=== PATIENT | male | born 1960 | race Two or more races ===

== ENCOUNTER 2017-11-11 21:40 | Inpatient (IN) | payer MEDICARE, OTHER ==
[~2017-11-11] VITALS: Ht 172.7 cm; Wt 96.2 kg
--- NOTE | 2017-11-11 22:05 | NUR ---
PATIENT CAME VIA GURNEY FROM [facility].PATIENT CONFUSED .MAEX4.NO RESPIRATORY DISTRESS NOTED BREATHING EVEN UNLABORED.SITTER AT BEDSIDE .
[2017-11-11] MEDS ORDERED: ACET-2154 PO (22:33)
[2017-11-11] MEDS ORDERED: LEVE500T9 PO (22:33)
[2017-11-11] MEDS ORDERED: CLON0.1T PO (22:33)
[2017-11-11] MEDS ORDERED: MONT10TA22 PO (22:33)
[2017-11-11] MEDS ORDERED: HALO5TAB PO (22:33)
[2017-11-11] MEDS ORDERED: ASPI81TA31 PO (22:33)
[2017-11-11] MEDS ORDERED: LISI-607 PO (22:33)
[2017-11-11] MEDS ORDERED: DIVA500T54 PO (22:33)
[2017-11-11] MEDS ORDERED: GLUCOPHAGE (22:33)
[2017-11-11] MEDS ORDERED: LORA2TAB95 PO (22:33)
[2017-11-11] MEDS ORDERED: ENOX40DI SQ (22:33)
[2017-11-11] MEDS ORDERED: HYDR12.55 PO (22:33)
[2017-11-11] MEDS ORDERED: HYDR-3326 PO (22:33)
[2017-11-11] MEDS ORDERED: RISP1TAB27 PO (22:33)
[2017-11-11] MEDS ORDERED: LOVENOX SUBCUT (22:33)
[2017-11-11 22:58] LABS: BASOPHILS # (AUTO) 0.2 K/uL (0.0-8.0); BASOPHILS % (AUTO) 1.5 % (0.0-2.0); EOSINOPHILS # (AUTO) 0.2 K/uL (0.0-0.7); EOSINOPHILS % (AUTO) 1.8 % (0.0-7.0); HEMOGLOBIN 13.7 g/dL (12.5-16.3); LYMPHOCYTES # (AUTO) 3.6 K/uL (20.0-40.0); MEAN CORPUSCULAR HEMOGLOBIN 30.5 uug (23.8-33.4); MEAN CORPUSCULAR HGB CONC 34 g/dL (32.5-36.3); MEAN CORPUSCULAR VOLUME 88.9 fL (73.0-96.2); MONOCYTES # (AUTO) 0.9 K/uL (2.0-10.0); MONOCYTES % (AUTO) 7.4 % (0.0-11.0); NEUTROPHILS # (AUTO) 6.8 K/uL (1.8-8.9); NEUTROPHILS % (AUTO) 58.3 % (38.5-71.5); PLATELET COUNT (AUTO) 230 K/uL (152-348); WHITE BLOOD COUNT (AUTO) 11.6 K/uL (3.6-10.2)
[2017-11-11 23:09] LABS: CARBON DIOXIDE 32 mmol/L (21-32); CHLORIDE 99 mmol/L (98-107); CREATININE 0.9 mg/dL (0.6-1.3); GLUCOSE 170 mg/dL (74-106); UREA NITROGEN, BLOOD 21 mg/dL (7-18)
[2017-11-11 23:10] LABS: ETHANOL < 3 MG/DL (0-0)
[2017-11-11 23:14] LABS: ACETAMINOPHEN < 2.0 ug/mL (10-30); ALANINE AMINOTRANSFERASE 32 U/L (16-63); ALKALINE PHOSPHATASE 116 U/L (50-136); ASPARTATE AMINOTRANSFERASE 18 U/L (15-37); BILIRUBIN,DIRECT 0.1 mg/dL (0.0-0.2); BILIRUBIN,TOTAL 0.3 mg/dL (0.2-1.0); TOTAL PROTEIN, SERUM 7.8 g/dL (6.4-8.2)
--- NOTE | 2017-11-12 03:20 | NUR ---
marissa RN in charge called for the bed in psych unit as per unit charge nurse they have to arrange bed and will moved beds around to accomodate pt and they will call ER once bed is available .
--- NOTE | 2017-11-12 04:45 | NUR ---
GIVEN GIVEN TO TABITHA USING SBAR PATIENT GOING TO ROOM 26 UNDER ROSA .
--- NOTE | 2017-11-12 05:02 | NUR ---
UPDATED REPORT GIVEN BY MACIEL LU RN GOING TO BED 26.
--- NOTE | 2017-11-12 05:08 | NUR ---
PATIENT EASILY AROUSABLE NOD HEAD TO SIMPLE QUESTIONS ,EYES OPEN SPONTANEOUSLY ..MOVED FROM SIDE TO SIDE .V/S WNL NO SOB .
[2017-11-12] MEDS ORDERED: MAG HYDROX/AL HYDROX/SIMETH 30 ML LIQUID UDC PO PRN (05:45)
[2017-11-12] MEDS ORDERED: MAGNESIUM HYDROXIDE 30 ML LIQUID UDC PO PRN (05:45)
--- NOTE | 2017-11-12 07:30 | NUR ---
Received pt laying in bed. 1:1 sitter in the room for safety. No immediate s/s of pain, distress, discomfort or SOB. Bed at lowest position safety and call light with in reach for assistance
[2017-11-12] MEDS ORDERED: DEXTROSE 50% 50 ML DISP.SYRIN IV PRN (07:45)
[2017-11-12 08:30] VITALS: BP 152/80
--- NOTE | 2017-11-12 08:40 | NUR ---
Pt is requesting to go outside and smoke. Pt start crying when he was informed he can not go outside. is aware, Nicotine patch 21mg ordered by doctor's orders
[2017-11-12] MEDS: ACETAMINOPHEN 325 MG TABLET PO PRN (08:55)
[2017-11-12] MEDS: LORAZEPAM 1 MG TABLET PO PRN ×2 (08:55→15:43)
[2017-11-12] MEDS: NICOTINE 21 MG/24HR PATCH TD SCH (08:55)
[2017-11-12] MEDS ORDERED: CLONIDINE HCL 0.1 MG TABLET PO SCH (10:15)
[2017-11-12] MEDS ORDERED: ENOXAPARIN SODIUM 40 MG/0.4 ML DISP.SYRIN SQ SCH ×2 (10:15→11:30)
[2017-11-12] MEDS ORDERED: ACETAMINOPHEN 325 MG TABLET PO PRN (10:15)
[2017-11-12] MEDS: LISINOPRIL 5 MG TABLET PO SCH (10:58)
[2017-11-12] MEDS ORDERED: DIVALPROEX ER 500 MG TAB.SR.24H PO SCH (11:20)
[2017-11-12] MEDS: BLOOD SUGAR DIAGNOSTIC 1 EACH STRIP VI SCH ×3 (11:57→20:43)
[2017-11-12] MEDS: LEVETIRACETAM 500 MG TABLET PO SCH (11:57)
[2017-11-12] MEDS: ENOXAPARIN SODIUM 30 MG/0.3 ML DISP.SYRIN SUBCUT SCH ×2 (11:58→20:03)
[2017-11-12] MEDS: INSULIN REGULAR, HUMAN 300 UNIT/3 ML VIAL SQ PRN ×3 (12:00→20:45)
[2017-11-12] MEDS: risperiDONE 1 MG TABLET PO SCH ×2 (13:13→20:04)
--- NOTE | 2017-11-12 13:40 | NUR ---
Pt has been medically cleared and will be transferring to MHU. Report given to MHU nurse.
--- NOTE | 2017-11-12 13:45 | NUR ---
Pt has been transferred to room 141B MHU via wheelchair, personally belongings with him and medical chart given to MHU nurse. Pt is in stable condition and aware of his transfer
[2017-11-12] MEDS ORDERED: CLONIDINE HCL 0.1 MG TABLET PO PRN (16:15)
[2017-11-12 16:19] VITALS: BP 108/59
[2017-11-12] MEDS: MONTELUKAST SODIUM 10 MG TABLET PO SCH (17:14)
[2017-11-12 19:49] VITALS: BP 110/48
[2017-11-12] MEDS: HYDROCODONE/APAP 5-325MG TABLET PO PRN (20:04)
--- NOTE | 2017-11-12 20:08 | NUR ---
GPS: PATIENT C/O BACK PAIN. NORCO 1 TAB PO GIVEN PER PATIENT REQUESTED.
[2017-11-12] MEDS: TEMAZEPAM 7.5 MG CAPSULE PO PRN (22:36)
--- NOTE | 2017-11-12 22:52 | NUR ---
GPS: PATIENT C/O INSOMNIA. RESTORIL 7.5 MG PO GIVEN.
--- NOTE | 2017-11-12 23:52 | NUR ---
GPS: PATIENT SLEEPING EYE CLOSE. PRN EFFECTIVE FOR SLEEP.
[2017-11-13] MEDS: BLOOD SUGAR DIAGNOSTIC 1 EACH STRIP VI SCH ×4 (06:24→20:47)
--- NOTE | 2017-11-13 06:36 | NUR ---
GPS: REMAIN CALM AND COOPERATIVE. SLEPT 10 HRS THROUGH THE NIGHT. CONTINUE PLAN OF CARE.C/O HEADACHE TYLENOL 650 MG PO GIVEN. CONTINUE PLAN OF CARE.
[2017-11-13] MEDS: ACETAMINOPHEN 325 MG TABLET PO PRN (06:44)
[2017-11-13] MEDS: INSULIN REGULAR, HUMAN 300 UNIT/3 ML VIAL SQ PRN ×4 (07:21→20:50)
[2017-11-13 07:57] VITALS: BP 108/60
[2017-11-13] MEDS: LEVETIRACETAM 500 MG TABLET PO SCH (08:07)
[2017-11-13] MEDS: DIVALPROEX ER 500 MG TAB.SR.24H PO SCH (08:07)
[2017-11-13] MEDS: risperiDONE 1 MG TABLET PO SCH ×2 (08:07→20:45)
[2017-11-13] MEDS: ASPIRIN 81 MG TAB.CHEW PO SCH (08:07)
[2017-11-13] MEDS: NICOTINE 21 MG/24HR PATCH TD SCH (08:07)
[2017-11-13] MEDS: LISINOPRIL 5 MG TABLET PO SCH (08:07)
[2017-11-13] MEDS: ENOXAPARIN SODIUM 30 MG/0.3 ML DISP.SYRIN SUBCUT SCH ×2 (08:08→20:51)
[2017-11-13] MEDS: LORAZEPAM 1 MG TABLET PO PRN ×3 (10:04→22:09)
[2017-11-13 16:43] VITALS: BP 93/52
[2017-11-13] MEDS: MONTELUKAST SODIUM 10 MG TABLET PO SCH (17:04)
--- NOTE | 2017-11-13 20:00 | NUR ---
RECEIVED PATIENT IN HIS ROOM, HE IS NOTED A/O X 2, HE IS ABLE TO AMBULATE WITH STEADY GAIT AND ABLE TO MAKE HIS NEEDS KNOWN. HE IS NOTED HARD OF HEARING. UPON INTERVIEW, WHEN ASKED "WHERE ARE YOU?" HE STATED IN A SARCASTIC WAY, "AT THE PARK." WHEN ASKED, "WHY ARE YOU HERE? HE STATED, "BECAUSE I AM CRAZY." PATIENT DENIES SI/AH/VH AT THIS TIME. SAFETY EMPHASIS. WILL CONTINUE TO MONITOR CLOSELY.
--- NOTE | 2017-11-13 22:10 | NUR ---
PATIENT NOTED RESTLESS, TALKING TO HIMSELF, RESPONDING TO INTERNAL STIMULI. HOWEVER, HE DENIED AH/VH. REDIRECTION GIVEN. ATIVAN 1MG PO PRN WAS GIVEN FOR AGITATION PER NURSE ASSESSMENT AND PATIENT REQUEST. WILL CONTINUE TO MONITOR CLOSELY.
[2017-11-14] MEDS: TEMAZEPAM 7.5 MG CAPSULE PO PRN ×2 (00:58→23:29)
--- NOTE | 2017-11-14 00:58 | NUR ---
PT APPROACHED THE NURSING STATION STATING THAT HE WAS UNABLE TO FALL ASLEEP AND HE NEEDED MORE MEDICATION. RESTORIL 7.5 MG PO PRN FOR INSOMNIA WAS GIVEN PER NURSE ASSESSMENT AND PATIENT'S REQUEST. WILL CONTINUE TO MONITOR.
--- NOTE | 2017-11-14 01:59 | NUR ---
PT NOTED SLEEPING COMFORTABLE IN HIS BED. WILL CONTINUE TO MONITOR CLOSELY.
[2017-11-14] MEDS: BLOOD SUGAR DIAGNOSTIC 1 EACH STRIP VI SCH ×4 (06:32→21:12)
[2017-11-14] MEDS: ACETAMINOPHEN 325 MG TABLET PO PRN ×2 (06:45→19:42)
--- NOTE | 2017-11-14 06:46 | NUR ---
Pt slept for approx 5.30hrs through the night. he stated that he is having a headaches 8/10 in the intensity scale and requested tylenol. Tylenol 650mg po prn was given for pain. will continue to monitor
[2017-11-14 07:30] VITALS: BP 120/57
[2017-11-14] MEDS: LORAZEPAM 1 MG TABLET PO PRN ×4 (07:39→21:46)
[2017-11-14] MEDS: INSULIN REGULAR, HUMAN 300 UNIT/3 ML VIAL SQ PRN ×4 (07:40→21:15)
[2017-11-14] MEDS: DIVALPROEX ER 500 MG TAB.SR.24H PO SCH (08:11)
[2017-11-14] MEDS: LISINOPRIL 5 MG TABLET PO SCH (08:12)
[2017-11-14] MEDS: risperiDONE 1 MG TABLET PO SCH ×2 (08:12→20:10)
[2017-11-14] MEDS: LEVETIRACETAM 500 MG TABLET PO SCH (08:12)
[2017-11-14] MEDS: ASPIRIN 81 MG TAB.CHEW PO SCH (08:12)
[2017-11-14] MEDS: NICOTINE 21 MG/24HR PATCH TD SCH (08:28)
[2017-11-14] MEDS: ENOXAPARIN SODIUM 30 MG/0.3 ML DISP.SYRIN SUBCUT SCH ×2 (08:36→21:16)
[2017-11-14 15:49] VITALS: BP 129/78
[2017-11-14] MEDS: MONTELUKAST SODIUM 10 MG TABLET PO SCH (17:10)
--- NOTE | 2017-11-14 20:00 | NUR ---
RECEIVED PATIENT IN HIS ROOM, HE IS NOTED A/O X 2, HE IS ABLE TO AMBULATE WITH STEADY GAIT AND ABLE TO MAKE HIS NEEDS KNOWN. HE IS NOTED PREOCCUPIED, LOW MOOD, NEEDY AND WITHDRAWN; HOWEVER, HE DENIES SI/HI/AH/VH. FAIR INSIGHT TO THE REASON FOR HIS ADMISSION TO MHU. BS 170. PATIENT IS COMPLIANT WITH MEDICATION REGIMENT AT THIS TIME. SAFETY EMPHASIS. WILL CONTINUE TO MONITOR.
[2017-11-14 20:11] VITALS: BP 119/75
--- NOTE | 2017-11-14 21:50 | NUR ---
PATIENT STATED AT HE WAS FEELING ANXIOUS. HE WAS ALSO NOTED YELLING. HOWEVER, HE IS EASILY REDIRECTABLE. ATIVAN 1MG PO PRN WAS GIVEN FOR ANXIETY. WILL CONTINUE TO MONITOR CLOSELY.
--- NOTE | 2017-11-14 23:55 | NUR ---
PT APPROACHED THE NURSING STATION, HE STATED THAT HE IS HAVING A HARD TIME FALLING ASLEEP. RESTORIL 7.5MG PO PRN WAS GIVEN FOR INSOMNIA PER PT REQUEST AND NURSING ASSESSMENT. WILL CONTINUE TO MONITOR CLOSELY.
--- NOTE | 2017-11-15 | NUR ---
PATIENT NOTED SLEEPING IN HIS BED COMFORTABLE
[2017-11-15] MEDS: BLOOD SUGAR DIAGNOSTIC 1 EACH STRIP VI SCH ×4 (06:16→20:27)
[2017-11-15 07:30] VITALS: BP 144/80
[2017-11-15] MEDS: ASPIRIN 81 MG TAB.CHEW PO SCH (08:46)
[2017-11-15] MEDS: DIVALPROEX ER 500 MG TAB.SR.24H PO SCH ×2 (08:46→20:01)
[2017-11-15] MEDS: risperiDONE 1 MG TABLET PO SCH ×2 (08:47→20:01)
[2017-11-15] MEDS: LEVETIRACETAM 500 MG TABLET PO SCH (08:47)
[2017-11-15] MEDS: ENOXAPARIN SODIUM 30 MG/0.3 ML DISP.SYRIN SUBCUT SCH ×2 (08:48→20:31)
[2017-11-15] MEDS: LISINOPRIL 5 MG TABLET PO SCH (08:49)
[2017-11-15] MEDS: NICOTINE 21 MG/24HR PATCH TD SCH (08:49)
[2017-11-15] MEDS: INSULIN REGULAR, HUMAN 300 UNIT/3 ML VIAL SQ PRN ×4 (08:54→20:30)
[2017-11-15] MEDS: LORAZEPAM 1 MG TABLET PO PRN ×2 (08:56→13:48)
--- NOTE | 2017-11-15 09:00 | NUR ---
PATIENT PACES HALLWAY, ANGRY MOOD, SCREAMING, PREOCCUPIED WITH PHONE CALL, VERBALLY ABUSIVE WITH STAFF, NEEDY AND DEMANDING, RESTLESS, UNCOOPERATIVE, PACING BACK AND FORTH HIS ROOM, PRN ATIVAN 1MG PO WAS GIVEN AT 0856, FOR INCREASED AGITATION, WILL REASSESS IN AN HOUR. MEDICATION COMPLIANT, NO C/O PAIN NOTED. WILL CONTINUE TO MONITOR FOR SAFETY AND BEHAVIORAL CHANGES.
--- NOTE | 2017-11-15 12:53 | NUR ---
Firearms Report: PEBBLES completed and submitted [employer] Firearms Report on 11/15/17
--- NOTE | 2017-11-15 13:21 | NUR ---
PATIENT SPENT TIME IN HIS ROOM, LESS AGGRESSIVE, LESS DEMANDING AT THIS TIME, BUT EASILY GETS AGITATED. WILL CONTINUE TO MONITOR.BS RESULT AT NOON [id number], 3 UNITS REGULAR INSULIN GIVEN. WILL CONTINUE TO MONITOR.
--- NOTE | 2017-11-15 13:53 | NUR ---
AT AROUND 1340, PATIENT CAME OUT OF THE ROOM VERY AGGRESSIVE ASKING FOR SNACKS, LOUD, INTRUSSIVE, CONSTANTLY AT THE NURSES STATION , NEEDY AND DEMANDING, NEED CONSTANT REDIRECTION, PRN ATIVAN 1MG PO WAS GIVEN AT 1348 FOR INCREASED AGITATION. WILL CONTINUE TO MONITOR FOR SAFETY AND BEHAVIORAL CHANGES.
--- NOTE | 2017-11-15 14:05 | NUR ---
Initial Discharge Instructions: Per chart, patient was living at a home with others [[address] [place] [address]; [phone]]. Per pt, he does not want to return there upon discharge. SW attempted to call the facility, and spoke with Tiffanie in admissions who reports that the patient was not a resident there. Per pt, he would like to go to a SNF upon discharge. Spoke with pt's [facility] Assistant Buyer, Jason ([phone]) and Supportive Living Worker, Yogesh Green ([phone]) who reported that the patient has a history of staying at [facility] [[address] [place] [address]; ]. PEBBLES left message for Kim at the facility. PEBBLES will continue to collaborate with pt, case workers, and MD regarding appropriate discharge plan for the patient. SW will form a safe and proper discharge.
[2017-11-15] MEDS: ACETAMINOPHEN 325 MG TABLET PO PRN (15:21)
--- NOTE | 2017-11-15 16:01 | NUR ---
Patient c/o headache at 12/18, tylenol 650mg PO was given at 1521. Will continue to monitor .
[2017-11-15 16:58] VITALS: BP 134/75
[2017-11-15] MEDS: MONTELUKAST SODIUM 10 MG TABLET PO SCH (17:20)
[2017-11-15] MEDS: HYDROCODONE/APAP 5-325MG TABLET PO PRN (19:31)
[2017-11-15 20:20] VITALS: BP 118/65
[2017-11-15] MEDS: TEMAZEPAM 7.5 MG CAPSULE PO PRN (22:10)
[2017-11-16] MEDS: BLOOD SUGAR DIAGNOSTIC 1 EACH STRIP VI SCH ×4 (06:32→20:41)
[2017-11-16] MEDS: VALPROIC ACID 250 MG CAPSULE PO SCH (08:05)
[2017-11-16] MEDS: LISINOPRIL 5 MG TABLET PO SCH (08:05)
[2017-11-16] MEDS: NICOTINE 21 MG/24HR PATCH TD SCH (08:05)
[2017-11-16] MEDS: ASPIRIN 81 MG TAB.CHEW PO SCH (08:05)
[2017-11-16] MEDS: LEVETIRACETAM 500 MG TABLET PO SCH (08:05)
[2017-11-16] MEDS: risperiDONE 1 MG TABLET PO SCH ×2 (08:05→20:41)
[2017-11-16] MEDS: LORAZEPAM 1 MG TABLET PO PRN (08:05)
[2017-11-16] MEDS: ENOXAPARIN SODIUM 30 MG/0.3 ML DISP.SYRIN SUBCUT SCH ×2 (08:06→20:44)
[2017-11-16 08:28] VITALS: BP 144/77
[2017-11-16] MEDS: ACETAMINOPHEN 325 MG TABLET PO PRN (08:44)
[2017-11-16 10:08] LABS: BASOPHILS # (AUTO) 0.1 K/uL (0.0-8.0); BASOPHILS % (AUTO) 0.7 % (0.0-2.0); EOSINOPHILS # (AUTO) 0.2 K/uL (0.0-0.7); EOSINOPHILS % (AUTO) 2.5 % (0.0-7.0); HEMATOCRIT 36.3 % (36.7-47.1); HEMOGLOBIN 12.8 g/dL (12.5-16.3); LYMPHOCYTES # (AUTO) 2.6 K/uL (20.0-40.0); LYMPHOCYTES % (AUTO) 27.1 % (20.5-51.5); MEAN CORPUSCULAR HGB CONC 35 g/dL (32.5-36.3); MEAN CORPUSCULAR VOLUME 88.4 fL (73.0-96.2); MONOCYTES # (AUTO) 0.5 K/uL (2.0-10.0); NEUTROPHILS # (AUTO) 6.3 K/uL (1.8-8.9); NEUTROPHILS % (AUTO) 64.7 % (38.5-71.5); PLATELET COUNT (AUTO) 203 K/uL (152-348); RED BLOOD CELL COUNT(AUTO) 4.11 MIL/uL (4.06-5.63); WHITE BLOOD COUNT (AUTO) 9.7 K/uL (3.6-10.2)
[2017-11-16 10:31] LABS: BILIRUBIN,TOTAL 0.4 mg/dL (0.2-1.0); CREATININE 0.9 mg/dL (0.6-1.3); MAGNESIUM 1.7 mg/dL (1.8-2.4); PHOSPHOROUS 3.1 mg/dL (2.5-4.9); POTASSIUM 3.7 mmol/L (3.5-5.1)
[2017-11-16 11:15] LABS: THYROID STIMULATING HORMONE 1.333 mIU/mL (0.358-3.740)
[2017-11-16] MEDS: INSULIN REGULAR, HUMAN 300 UNIT/3 ML VIAL SQ PRN ×3 (11:59→20:43)
[2017-11-16] MEDS ORDERED: MAGNESIUM OXIDE 400 MG TABLET PO ONE (12:45)
[2017-11-16] MEDS: HYDROCODONE/APAP 5-325MG TABLET PO PRN (14:28)
[2017-11-16] MEDS ORDERED: Medication Not On Formulary EA (Hydrochlorothiazide 12.5 MG) PO SCH (15:15)
[2017-11-16 15:36] VITALS: BP 116/77
[2017-11-16] MEDS: HYDROCHLOROTHIAZIDE 12.5 MG CAPSULE PO SCH (15:50)
[2017-11-16 16:31] LABS: *BILIRUBIN,URIN NEGATIVE (NEGATIVE); *BLOOD, URINE NEGATIVE (NEGATIVE); *CLARITY,URINE CLEAR (CLEAR); *COLOR,URINE YELLOW (YELLOW); *KETONES,URINE NEGATIVE (NEGATIVE); *PROTEIN,URINE NEGATIVE (NEGATIVE); *UROBILINOGEN,URINE 0.2 E.U./dl (NORMAL); LEUKOCYTE ESTERASE ,URINE NEGATIVE (NEGATIVE); NITRITE, URINE NEGATIVE (NEGATIVE); PH,URINE 6.5 (5.0-8.0); UGLUCOSE NEGATIVE (NEGATIVE)
[2017-11-16 17:13] LABS: SQUAMOUS EPITHELIAL CELL,UR FEW /HPF (NONE SEEN); WBC,URINE 0-3 /HPF (0-3)
[2017-11-16] MEDS: MONTELUKAST SODIUM 10 MG TABLET PO SCH (18:21)
[2017-11-16] MEDS: METFORMIN HCL 500 MG TABLET PO SCH (18:21)
[2017-11-16 19:54] VITALS: BP 120/56
[2017-11-16] MEDS: DIVALPROEX ER 500 MG TAB.SR.24H PO SCH (20:41)
[2017-11-16] MEDS: TEMAZEPAM 7.5 MG CAPSULE PO PRN (21:55)
--- NOTE | 2017-11-16 22:20 | NUR ---
RECEIVED Pt SLEEPING IN BED BUT EASILY AROUSED, A/O X 2, NOTED UNCLEAR, DELAYED, GARBLED SPEECH. COOPERATIVE WITH ASSESSMENT, NOTED SLIGHT ANXIETY BUT NO AGGRESSIVE BEHAVIORS NOTED. COMPLIANT WITH MEDS AND CARE STAFF. Pt CAME TO NURSE'S STATION AT 2200 ASKING FOR SLEEPING MEDS. GIVEN RESTORIL 7.5 MG PO PRN PER MD ORDER. WILL MONITOR Pt FOR EFFECTIVENESS OF MEDICATION.
[2017-11-17] MEDS: ACETAMINOPHEN 325 MG TABLET PO PRN (06:26)
[2017-11-17] MEDS: BLOOD SUGAR DIAGNOSTIC 1 EACH STRIP VI SCH ×4 (06:33→20:18)
--- NOTE | 2017-11-17 06:49 | NUR ---
Pt SLEPT WELL AFTER RESTORIL PRN WAS GIVEN LAST NIGHT BUT WOKE UP YELLING AND AGITATED. Pt WAS REDIRECTED WITH SUCCESS BUT STILL HAS RANDOM MOMENTS OF YELLING. OFFERED ATIVAN BUT REFUSED. BLOOD SUGAR THIS MORNING WAS 120, NO INSULIN COVERAGE NEEDED.
[2017-11-17 07:30] VITALS: BP 107/71
[2017-11-17] MEDS: ASPIRIN 81 MG TAB.CHEW PO SCH (08:17)
[2017-11-17] MEDS: NICOTINE 21 MG/24HR PATCH TD SCH (08:17)
[2017-11-17] MEDS: METFORMIN HCL 500 MG TABLET PO SCH ×2 (08:17→18:00)
[2017-11-17] MEDS: LEVETIRACETAM 500 MG TABLET PO SCH (08:18)
[2017-11-17] MEDS: risperiDONE 1 MG TABLET PO SCH ×2 (08:18→20:18)
[2017-11-17] MEDS: HYDROCHLOROTHIAZIDE 12.5 MG CAPSULE PO SCH (08:18)
[2017-11-17] MEDS: LISINOPRIL 5 MG TABLET PO SCH (08:18)
[2017-11-17] MEDS: VALPROIC ACID 250 MG CAPSULE PO SCH (08:18)
[2017-11-17] MEDS: ENOXAPARIN SODIUM 30 MG/0.3 ML DISP.SYRIN SUBCUT SCH ×2 (08:19→20:18)
[2017-11-17] MEDS: LORAZEPAM 1 MG TABLET PO PRN (09:40)
[2017-11-17] MEDS: INSULIN REGULAR, HUMAN 300 UNIT/3 ML VIAL SQ PRN (11:56)
[2017-11-17] MEDS ORDERED: OLANZAPINE 10 MG VIAL IM ONE (14:00)
--- NOTE | 2017-11-17 14:15 | NUR ---
PT YELLING, SCREAMING, AGITATED, THREATENING AND LOUNGING AT STAFF. PT IS NOT RE-DIRECTABLE AT THIS TIME.PT REFUSED TO USE RELAXATION TECHNIQUES. PSYCHIATRIST ORDERED ZYPREXA 5MG IM ONCE NOW. PT ALLOWED INJECTION. PT STABLE AND RESTING IN BED. CONTINUE TO MONITOR PT.
[2017-11-17] MEDS: MONTELUKAST SODIUM 10 MG TABLET PO SCH (18:00)
--- NOTE | 2017-11-17 18:24 | NUR ---
PT RESTING, LETHARGIC AND CAN NOT TAKE 1800 MEDICATIONS AT THIS TIME. PT IS AT RISK FOR ASPIRATION. WILL CONTINUE TO MONITOR PT.
[2017-11-17] MEDS: DIVALPROEX ER 500 MG TAB.SR.24H PO SCH (20:18)
[2017-11-17 22:30] VITALS: BP 122/67
[2017-11-18] MEDS: BLOOD SUGAR DIAGNOSTIC 1 EACH STRIP VI SCH ×4 (06:31→20:21)
--- NOTE | 2017-11-18 06:34 | NUR ---
GPS: Pt.refused his blood sugar check at this time despite explanation of importance. Easily agitated when being persuaded to have his blood sugar checked. Will continue to monitor behavior.
[2017-11-18 08:10] VITALS: BP 140/74
[2017-11-18] MEDS: ACETAMINOPHEN 325 MG TABLET PO PRN (08:46)
[2017-11-18] MEDS: ENOXAPARIN SODIUM 30 MG/0.3 ML DISP.SYRIN SUBCUT SCH ×2 (09:00→20:40)
[2017-11-18] MEDS: LISINOPRIL 5 MG TABLET PO SCH (09:04)
[2017-11-18] MEDS: VALPROIC ACID 250 MG CAPSULE PO SCH (09:04)
[2017-11-18] MEDS: NICOTINE 21 MG/24HR PATCH TD SCH (09:05)
[2017-11-18] MEDS: METFORMIN HCL 500 MG TABLET PO SCH ×2 (09:05→17:32)
[2017-11-18] MEDS: risperiDONE 1 MG TABLET PO SCH ×3 (09:05→20:22)
[2017-11-18] MEDS: ASPIRIN 81 MG TAB.CHEW PO SCH (09:05)
[2017-11-18] MEDS: LEVETIRACETAM 500 MG TABLET PO SCH (09:05)
[2017-11-18] MEDS: HYDROCHLOROTHIAZIDE 12.5 MG CAPSULE PO SCH (09:05)
[2017-11-18] MEDS: LORAZEPAM 1 MG TABLET PO PRN ×3 (09:10→21:56)
--- NOTE | 2017-11-18 15:00 | NUR ---
Gps/Monument Setter Helper- Patient came out of his room angry, like chargng like behavior yelling at one of his peers for no reason, tried to separate both from almost fighting mood. Safety reviewed, emphasized for both patient. Both calmed down, security was called to be on site for safety.
[2017-11-18] MEDS: MONTELUKAST SODIUM 10 MG TABLET PO SCH (17:32)
[2017-11-18] MEDS: DIVALPROEX ER 500 MG TAB.SR.24H PO SCH (20:22)
--- NOTE | 2017-11-18 20:30 | NUR ---
RECEIVED PATIENT IN THE HALLWAY, HE IS NOTED A/O X 2. ABLE TO AMBULATE WITH STEADY GAIT AND ABLE TO MAKE HIS NEEDS KNOWN. COMPLIANT WITH ACCU-CHECK QHS WITH 136 RESULTS. SNACKS WERE THEN GIVEN. UPON INTERVIEW, PATIENT NOTED WITHDRAWN, LOW MOOD, LABILE BX. BLUNTED AFFECT. FAIR INSIGHT POOR JUDGMENT NOTED. HE DENIES SI/HI. DENIES AH/VH. ABLE TO CFS AND ABLE TO COMPLY WITH MEDICATION QHS REGIMENT AT THIS TIME. WILL CONTINUE TO MONITOR CLOSELY.
[2017-11-18 20:36] VITALS: BP 104/60
[2017-11-18] MEDS: INSULIN REGULAR, HUMAN 300 UNIT/3 ML VIAL SQ PRN (20:40)
--- NOTE | 2017-11-18 21:57 | NUR ---
DURING ROUNDS, PATIENT REQUESTED ATIVAN PO PRN. HE STATED THAT HE IS FEELING ANXIOUS. ATIVAN 1MG PO PRN WAS GIVEN FOR ANXIETY PER PATIENT REQUEST AND NURSING ASSESSMENT. WILL CONTINUE TO MONITOR CLOSELY.
--- NOTE | 2017-11-18 23:10 | NUR ---
patient noted sleeping comfortable in his bed. will continue to monitor.
[2017-11-19] MEDS: BLOOD SUGAR DIAGNOSTIC 1 EACH STRIP VI SCH ×4 (06:46→20:52)
[2017-11-19 07:30] VITALS: BP 121/70
[2017-11-19] MEDS: METFORMIN HCL 500 MG TABLET PO SCH ×2 (08:20→17:35)
[2017-11-19] MEDS: ENOXAPARIN SODIUM 30 MG/0.3 ML DISP.SYRIN SUBCUT SCH ×2 (08:27→20:25)
[2017-11-19] MEDS: LEVETIRACETAM 500 MG TABLET PO SCH (08:28)
[2017-11-19] MEDS: risperiDONE 1 MG TABLET PO SCH ×3 (08:28→20:09)
[2017-11-19] MEDS: HYDROCHLOROTHIAZIDE 12.5 MG CAPSULE PO SCH (08:28)
[2017-11-19] MEDS: LISINOPRIL 5 MG TABLET PO SCH (08:29)
[2017-11-19] MEDS: NICOTINE 21 MG/24HR PATCH TD SCH (08:29)
[2017-11-19] MEDS: ASPIRIN 81 MG TAB.CHEW PO SCH (08:29)
[2017-11-19] MEDS: LORAZEPAM 1 MG TABLET PO PRN ×4 (08:30→21:15)
[2017-11-19] MEDS: VALPROIC ACID 250 MG CAPSULE PO SCH (08:30)
[2017-11-19] MEDS ORDERED: OLANZAPINE 10 MG VIAL IM ONE (13:00)
--- NOTE | 2017-11-19 13:00 | NUR ---
Gps/Veneer Slicing Machine Operator- Labile mood, yelling, loud, threatening behavior,not redirectable, calling staff names, uttering nasty words.Dr Beltran was in observed behavior, ordered received, Zyprexa 5 mg IM, was administered to his LUOQ of his buttocks.Patient refusing to have his bed sheets change, noted food stains on his bedsheets .
--- NOTE | 2017-11-19 15:00 | NUR ---
Gps/Gynecological Assistant- patient had been quiet, remains in bed, sleeping on and off, no distress, kept lights off,pt. request.
[2017-11-19] MEDS: MONTELUKAST SODIUM 10 MG TABLET PO SCH (17:36)
[2017-11-19] MEDS: INSULIN REGULAR, HUMAN 300 UNIT/3 ML VIAL SQ PRN ×2 (18:48→20:46)
[2017-11-19] MEDS: DIVALPROEX ER 500 MG TAB.SR.24H PO SCH (20:09)
[2017-11-19 20:29] VITALS: BP 114/70
[2017-11-19] MEDS: ACETAMINOPHEN 325 MG TABLET PO PRN (22:02)
[2017-11-19] MEDS: TEMAZEPAM 7.5 MG CAPSULE PO PRN (22:02)
--- NOTE | 2017-11-19 23:02 | NUR ---
RECEIVED Pt IN BED, AWAKE AND AGITATED, A/O X 2, Pt TOOK NIGHT MEDS BUT AGGRESSIVE AND CURSING AT STAFF. Pt REQUESTED ATIVAN AND BECAME AGITATED WHEN NURSE TOLD HIM TO WAIT DUE TO HIM RECEIVING ATIVAN LESS THAN 4 HOURS AGO. AFTER ATIVAN ADMINISTRATION, Pt REQUESTED FOR RESTORIL FOR SLEEP. NURSE TOLD Pt THAT RESTORIL AND ATIVAN COULD NOT BE GIVEN AT THE SAME TIME. Pt WAS ONCE AGAIN AGITATED AND BECAME AGGRESSIVE. RESTORIL WAS GIVEN AT AN APPROPRIATE TIME, Pt HAS BEEN QUIET IN HIS ROOM BUT IS STILL AWAKE. WILL MONITOR Pt CLOSELY THROUGHOUT SHIFT.
[2017-11-20] MEDS: BLOOD SUGAR DIAGNOSTIC 1 EACH STRIP VI SCH ×4 (06:54→20:08)
--- NOTE | 2017-11-20 06:54 | NUR ---
Pt SLEPT WELL WITHOUT INTERRUPTIONS AFTER TAKING RESTORIL PO PRN LAST NIGHT. Pt REFUSED LAB DRAW AND ACCUCHECK THIS MORNING, WAS AGITATED AND YELLING AT STAFF. LEAD SOFTWARE TESTER WILL RE-TRY TO DO LAB DRAW AGAIN AT A LATER TIME. WILL ENDORSE TO DAY SHIFT NURSE REGARDING REFUSAL OF ACCUCHECK.
[2017-11-20] MEDS: METFORMIN HCL 500 MG TABLET PO SCH ×2 (08:41→17:31)
[2017-11-20] MEDS: risperiDONE 1 MG TABLET PO SCH (08:41)
[2017-11-20] MEDS: LEVETIRACETAM 500 MG TABLET PO SCH (08:41)
[2017-11-20] MEDS: VALPROIC ACID 250 MG CAPSULE PO SCH (08:41)
[2017-11-20] MEDS: HYDROCHLOROTHIAZIDE 12.5 MG CAPSULE PO SCH (08:41)
[2017-11-20] MEDS: NICOTINE 21 MG/24HR PATCH TD SCH (08:42)
[2017-11-20] MEDS: ASPIRIN 81 MG TAB.CHEW PO SCH (08:42)
[2017-11-20] MEDS: ENOXAPARIN SODIUM 30 MG/0.3 ML DISP.SYRIN SUBCUT SCH ×2 (08:54→20:05)
[2017-11-20] MEDS: LORAZEPAM 1 MG TABLET PO PRN ×3 (08:55→17:31)
[2017-11-20] MEDS: LISINOPRIL 5 MG TABLET PO SCH (08:56)
--- NOTE | 2017-11-20 08:56 | NUR ---
Gps/Enterprise Security Architect-Unable to administer prinivil , r/t pt. refsing to have his blood pressure check, will attemp to recheck b/p again.
[2017-11-20] MEDS: INSULIN REGULAR, HUMAN 300 UNIT/3 ML VIAL SQ PRN ×3 (11:30→20:04)
--- NOTE | 2017-11-20 15:00 | NUR ---
Gps/Casting And Pasting Supervisor- Comes out of his room to asked for snacks, or something to drink. Refusing to have his blood pressure taken , claimed always check his vital signs, informed patient he needs to comply with treatment plan , and staff are here to help him. Noted compliance with most of his medications but unable to administer b/p med. needed to check his vital signs.
[2017-11-20] MEDS ORDERED: risperiDONE 1 MG TABLET PO SCH (17:00)
[2017-11-20] MEDS: MONTELUKAST SODIUM 10 MG TABLET PO SCH (17:31)
[2017-11-20] MEDS: risperiDONE 2 MG TABLET PO SCH (17:31)
[2017-11-20] MEDS: DIVALPROEX ER 500 MG TAB.SR.24H PO SCH (20:02)
[2017-11-20 20:27] VITALS: BP 110/61
[2017-11-20] MEDS: TEMAZEPAM 7.5 MG CAPSULE PO PRN (21:06)
[2017-11-21] MEDS: BLOOD SUGAR DIAGNOSTIC 1 EACH STRIP VI SCH ×4 (06:35→20:09)
[2017-11-21 07:30] VITALS: BP 124/74
[2017-11-21] MEDS: VALPROIC ACID 250 MG CAPSULE PO SCH (08:00)
[2017-11-21] MEDS: ASPIRIN 81 MG TAB.CHEW PO SCH (08:00)
[2017-11-21] MEDS: HYDROCHLOROTHIAZIDE 12.5 MG CAPSULE PO SCH (08:00)
[2017-11-21] MEDS: NICOTINE 21 MG/24HR PATCH TD SCH (08:01)
[2017-11-21] MEDS: LISINOPRIL 5 MG TABLET PO SCH (08:01)
[2017-11-21] MEDS: LORAZEPAM 1 MG TABLET PO PRN ×2 (08:01→18:31)
[2017-11-21] MEDS: risperiDONE 2 MG TABLET PO SCH ×2 (08:01→17:00)
[2017-11-21] MEDS: LEVETIRACETAM 500 MG TABLET PO SCH (08:01)
[2017-11-21] MEDS: METFORMIN HCL 500 MG TABLET PO SCH ×2 (08:01→17:00)
[2017-11-21 08:14] LABS: BASOPHILS # (AUTO) 0.1 K/uL (0.0-8.0); BASOPHILS % (AUTO) 0.7 % (0.0-2.0); EOSINOPHILS # (AUTO) 0.3 K/uL (0.0-0.7); EOSINOPHILS % (AUTO) 2.2 % (0.0-7.0); HEMATOCRIT 37.4 % (36.7-47.1); HEMOGLOBIN 12.9 g/dL (12.5-16.3); LYMPHOCYTES % (AUTO) 25.4 % (20.5-51.5); MEAN CORPUSCULAR HEMOGLOBIN 30.7 uug (23.8-33.4); MEAN CORPUSCULAR HGB CONC 35 g/dL (32.5-36.3); MEAN CORPUSCULAR VOLUME 88.6 fL (73.0-96.2); MONOCYTES # (AUTO) 0.7 K/uL (2.0-10.0); MONOCYTES % (AUTO) 6.2 % (0.0-11.0); NEUTROPHILS # (AUTO) 7.8 K/uL (1.8-8.9); NEUTROPHILS % (AUTO) 65.5 % (38.5-71.5); PLATELET COUNT (AUTO) 228 K/uL (152-348); RED BLOOD CELL COUNT(AUTO) 4.22 MIL/uL (4.06-5.63); WHITE BLOOD COUNT (AUTO) 11.9 K/uL (3.6-10.2)
[2017-11-21 08:24] LABS: BILIRUBIN,TOTAL 0.5 mg/dL (0.2-1.0); MAGNESIUM 1.7 mg/dL (1.8-2.4); PHOSPHOROUS 3.3 mg/dL (2.5-4.9); POTASSIUM 3.9 mmol/L (3.5-5.1); TOTAL PROTEIN, SERUM 7.3 g/dL (6.4-8.2)
[2017-11-21] MEDS: INSULIN REGULAR, HUMAN 300 UNIT/3 ML VIAL SQ PRN ×3 (12:10→20:05)
[2017-11-21] MEDS ORDERED: MAGNESIUM OXIDE 400 MG TABLET PO ONE (12:30)
[2017-11-21 15:50] VITALS: BP 119/68
[2017-11-21] MEDS: MONTELUKAST SODIUM 10 MG TABLET PO SCH (17:00)
[2017-11-21 20:00] VITALS: BP 112/61
[2017-11-21] MEDS: DIVALPROEX ER 500 MG TAB.SR.24H PO SCH (20:05)
[2017-11-21] MEDS: TEMAZEPAM 7.5 MG CAPSULE PO PRN (21:03)
[2017-11-22] MEDS: BLOOD SUGAR DIAGNOSTIC 1 EACH STRIP VI SCH ×2 (06:43→11:39)
[2017-11-22 07:30] VITALS: BP 125/74
[2017-11-22 08:47] VITALS: BP 125/74
[2017-11-22] MEDS: METFORMIN HCL 500 MG TABLET PO SCH (08:47)
[2017-11-22] MEDS: ASPIRIN 81 MG TAB.CHEW PO SCH (08:47)
[2017-11-22] MEDS: NICOTINE 21 MG/24HR PATCH TD SCH (08:47)
[2017-11-22] MEDS: risperiDONE 2 MG TABLET PO SCH (08:47)
[2017-11-22] MEDS: LEVETIRACETAM 500 MG TABLET PO SCH (08:47)
[2017-11-22] MEDS: LISINOPRIL 5 MG TABLET PO SCH (08:47)
[2017-11-22] MEDS: VALPROIC ACID 250 MG CAPSULE PO SCH (08:47)
[2017-11-22] MEDS: HYDROCHLOROTHIAZIDE 12.5 MG CAPSULE PO SCH (08:49)
--- NOTE | 2017-11-22 10:13 | NUR ---
Discharge Note: Patient will be discharged to [facility] [[address], [place] [address]; [phone]] via ambulance. Spoke to Megan at the facility who states they are ready to accept the patient today. Patient will be in room 2A. Spoke with patient's [facility] Worker, Jak ([phone]) who is aware and agreeable with discharge plans. Patient is aware and agreeable with discharge plans. Patient will follow-up at the facility with Dr. Paniagua (On Call Pharmacy Technician) and Dr. Rueda (Psychiatrist). Patient was provided with a brief substance abuse intervention and referred to [facility] ([phone]), [facility] ([phone]); and the [facility] National Helpline ( ).
[2017-11-22] MEDS: INSULIN REGULAR, HUMAN 300 UNIT/3 ML VIAL SQ PRN (12:13)
--- NOTE | 2017-11-22 14:07 | NUR ---
DISCHARGED PT VIA AMBULANCE TO [facility] [address] [place] [address]. PT BELONGINGS AND DISCHARGE INSTRUCTIONS GIVEN TO PT. VSS. NO AGITATION OR AGGRESSIVE BEHAVIOR. DENIES SI AND HI.
== END 2017-11-22 14:30 | DRG 885 ==
LOC: ER 21:42 → MED 11-12 05:00 → GPSOV 11-12 06:00 → GPS 11-12 13:43
PROVIDERS: ADMIT Psychiatry & Neurology Psychiatry; ATTEND Nurse Practitioner Acute Care
DX: F20.0 Paranoid schizophrenia (principal); E11.65 Type 2 diabetes mellitus with hyperglycemia; E44.0 Moderate protein-calorie malnutrition; E83.42 Hypomagnesemia; F31.9 Bipolar disorder, unspecified; E66.9 Obesity, unspecified; F17.210 Nicotine dependence, cigarettes, uncomplicated; I10 Essential (primary) hypertension; I25.10 Atherosclerotic heart disease of native coronary artery without angina pectoris; J44.9 Chronic obstructive pulmonary disease, unspecified; G89.29 Other chronic pain; Z68.32 Body mass index [BMI] 32.0-32.9, adult; E78.1 Pure hyperglyceridemia; I25.2 Old myocardial infarction; Z79.84 Long term (current) use of oral hypoglycemic drugs
CPT/HCPCS: 36415; 71045; 80164; 83735; 84100; 84443; 85025; 87086; 92610; A4663; G0480; G0480-TC; J1650; J1815; J2358